=== PATIENT | male | born 1950 | race Caucasian/White ===

== ENCOUNTER 2017-02-16 12:29 | Emergency (ER) | payer OTHER ==
[2017-02-16 12:37] VITALS: RESP 14; O2SAT 97
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
[2017-02-16] MEDS ORDERED: TDAP ADULT 0.5 ML INJ (BOOSTRIX) IM ONE (14:58)
[2017-02-16 15:13] VITALS: BP 154/94
[2017-02-16 15:14] VITALS: PULSE 84; TEMP 98.1
== END 2017-02-16 15:12 | disposition home or self-care (01) ==
DX: S62.111A Displaced fracture of triquetrum [cuneiform] bone, right wrist, initial encounter for closed fracture (principal); Z23 Encounter for immunization; V18.0XXA Pedal cycle driver injured in noncollision transport accident in nontraffic accident, initial encounter; Y92.410 Unspecified street and highway as the place of occurrence of the external cause; Y99.8 Other external cause status; Y93.55 Activity, bike riding
CPT/HCPCS: L3908